=== PATIENT | female | born 1965 | race Caucasian/White ===

== ENCOUNTER 2016-08-19 09:21 | Emergency (ER) | payer OTHER ==
[~2016-08-19] VITALS: Ht 167.6 cm; Wt 86.2 kg
--- NOTE | ~2016-08-19 | CR169 ---
[facility]. [facility] A Service of [facility] RADIOLOGY TEXT RESULTS PATIENT: BRITNEY MARTINEZ LOCATION: SED : 67 UNIT #: [id number] AGE: [address]: Loco Villarreal MD SEX: F ORDER DR: [id number] [address] [address] [id number] E MR#: [id number] Acc #: [id number] NAME: BRITNEY MARTINEZ : 1965 SEX: F STUDY DATE/TIME: 08/19/2016 9:49 UNIT: SED ROOM: STUDY DESCRIPTION: CR Knee 2 Views Lt Attending Physician: Loco Villarreal M.D. Ordering Physician: Loco Villarreal M.D. Primary Care Physician: Isra Gregg M.D. MEDICAL IMAGING REPORT This report is preliminary unless electronic signature is present. EXAM Left knee INDICATIONS Left knee pain after hyperextending knee. Pain. FINDINGS 2 views of the left knee without comparison. No fracture dislocation. No effusion. IMPRESSION Negative left knee. Dictated by... John Mccloud M.D. THIS IS AN ELECTRONICALLY VERIFIED REPORT John Mccloud M.D. at 08/19/2016 2:18 PM RPC/devyn TD: 08/19/2016 13:03 JOB #: [id number] MEDICAL IMAGING REPORT Page 1 of 1
[~2016-08-19 09:21] MED LIST: ATENOLOL25 MG PO; BENTYL20 M1 PO; BENTYL20 MG PO; CALCIUM + D 6001 TA1 PO; CARAFATE1 G PO; CARAFATE1 GM PO; DULOXETINE HCL60 MG PO; INDAPAMIDE1.25 MG PO; K-DUR20 ME1 PO; KLOR-CON PO; LIBRAX1 CAP 5/2. PO; LINZESS145 MCG PO; LISINOPRIL; LISINOPRIL10 MG PO; MEGA BIOTIN10000 MCG PO; NEURONTIN300 MG PO; NEXIUM PO; SYNTHROID25 MCG PO; TENORMIN25 M1 PO; TOPROL XL; TRAMADOL HCL50 M1 PO; ULTRAM PO; ZESTRIL10 M1 PO; ZOFRAN ODT4 MG PO; ZOFRAN PO/SL
== END 2016-08-19 11:29 | disposition home or self-care (01) ==
LOC: SED 09:21
DX: S86.912A Strain of unspecified muscle(s) and tendon(s) at lower leg level, left leg, initial encounter (principal); K21.9 Gastro-esophageal reflux disease without esophagitis; F17.200 Nicotine dependence, unspecified, uncomplicated; Z90.710 Acquired absence of both cervix and uterus; Z90.49 Acquired absence of other specified parts of digestive tract; X50.1XXA Overexertion from prolonged static or awkward postures, initial encounter; Y92.009 Unspecified place in unspecified non-institutional (private) residence as the place of occurrence of the external cause
CPT/HCPCS: 29530; 73560; 99283